=== PATIENT | female | born 1945 | race Caucasian/White ===

== ENCOUNTER 2024-09-13 09:24 | Emergency (ER) | payer OTHER, SELFPAY ==
[2024-09-13 09:42] VITALS: BP 134/48
--- NOTE | 2024-09-13 12:30 | ED.GENMED ---
History of Present Illness
General
Chief Complaint: Eye Problems
Source: patient
Exam Limitations: none
Time Seen by Provider: 09/13/24 12:21
History of Present Illness
History of Present Illness:
79-year-old female not anticoagulated but is a [id number]-[id number] diabetic presents with headache this morning associated with red blood covered eye. She denied any unilateral numbness or weakness or slurred speech. She did have some blurred
vision at the onset of her symptoms. No neck pain. No known injury. No other complaints at this time
Past History
Past History
ED Past Medical History: Asthma, HTN, Hypercholesterolemia and NIDDM
Social History
Tobacco: Non-smoker
Alcohol: None
Drug: None
Living: with family
Employment: Other
Family History
Family History: Other
Phy Exam
Physical Exam
Physical Exam:
General: Well-appearing female no acute respiratory distress
HEENT: Normocephalic atraumatic subconjunctival hemorrhage noted to the right eye. There is no hyphema. Extraocular's are intact.
Heart: Regular rate and rhythm
Lungs: Clear no wheeze
Neurologic exam: Normal gait alert and oriented no drift no facial asymmetry no dysarthria or aphasia
Extremities: No cyanosis
Skin is warm no rash
Course
Orders/Labs/Results
Orders:
Orders
09/13/24 12:29
CT Head W/o Iv Contrast Urgent
Comment:
Reason For Exam: headache
Vital Signs
Initial and Last Documented VS:
Initial Vital Signs
Temp Pulse Resp Pulse Ox
97.3 F 57 16 97
09/13/24 09:40 09/13/24 09:40 09/13/24 09:40 09/13/24 09:40
Last Documented Vital Signs
Temp Pulse Resp BP Pulse Ox
97.3 F 57 16 134/48 97
09/13/24 09:40 09/13/24 09:40 09/13/24 09:40 09/13/24 09:42 09/13/24 09:40
MDM/Problems Addressed
Differential Diagnosis Includes:
Headache with blurry vision and now subconjunctival hemorrhage. I suspect symptoms mostly related to subconjunctival hemorrhage. Patient and family significantly concerned about stroke. CT of the head ordered.
*Critical Care Note
Total Time (30-74mins, 75-104mins- exclusive of procedures): Not Applicable
Update Note
Update Note:
CT head was negative. Patient reassured. I suspect symptoms are related just to subconjunctival hemorrhage.
ED Attending Note
-
Portions of this chart may have been created with voice recognition software.� Occasional wrong word or��sound alike� substitutions may have occurred due to the inherent limitations of voice recognition software.
Discharge Plan
Departure
Patient Disposition: Home (Routine Discharge)
Date of Disposition: 09/13/24
Time of Disposition: 13:45
Patient with high blood pressure during this ER visit?: No
Discharge Problem:
ELISHA (subconjunctival hemorrhage)
Instructions: Subconjunctival Hemorrhage
Prescriptions:
No Action
losartan 50 MG tablet
100 mg PO BID
metformin 500 MG tablet
500 mg PO BID
glimepiride 4 MG tablet
4 mg PO DAILY
montelukast 10 MG tablet
10 mg PO QPM
vit C,Q-Qa-hjsrz-lutein-zeaxan [PreserVision AREDS-2] 1 EACH capsule
2 cap PO DAILY
ipratropium-albuterol [Combivent Respimat] 1 PUFF mist
1 puff inhalation DAILY
mometasone [Asmanex HFA] 13 GM HFA aerosol inhaler
2 puff inhalation DAILY
azelastine [Optivar] 0.05 % drops
1 drp BOTH EYES DAILY
hydralazine 25 MG tablet
25 mg PO TID
diltiazem HCl 120 MG tablet
240 mg PO BID
famotidine [Pepcid AC] 20 MG tablet
20 mg PO BID
lovastatin 20 MG tablet
20 mg PO DAILY
hydrocodone-acetaminophen 1 EACH tablet
1 ea PO Q6HPRN PRN (Reason: knee pain)
prednisone 50 MG tablet
50 mg PO DAILY Qty: 4 0RF
Referrals:
Corie Toledo MD [Family Provider] -
Activity Restrictions/Additional Instructions:
This should go away on its own. You may apply compresses to the area. Return if needed otherwise
Interventions
Interventions:
*Risk Screen - Suicide Last Done: 09/13/24 09:43
*General Assessment Last Done: 09/13/24 12:45
*Neglect/Abuse Screening Last Done: 09/13/24 09:43
ED- Fall Risk Assessment Last Done: 09/13/24 12:45
Discharge Date and Time
Print Language: [place]
== END 2024-09-13 13:58 | disposition home or self-care (01) ==
LOC: EMR 09:24
PROVIDERS: EMERGENCY PHYSICIAN Emergency Medicine; FAMILY PHYSICIAN Student in an Organized Health Care Education/Training Program
DX: H11.31 Conjunctival hemorrhage, right eye (principal); R51.9 Headache, unspecified; E11.9 Type 2 diabetes mellitus without complications; E78.00 Pure hypercholesterolemia, unspecified; I10 Essential (primary) hypertension; J45.909 Unspecified asthma, uncomplicated
CPT/HCPCS: 99284; 70450